=== PATIENT | male | born 1990 | race American Indian/Alaskan Native ===

== ENCOUNTER 2020-11-08 14:03 | Emergency (ER) | payer SELFPAY ==
--- NOTE | 2020-11-08 15:55 | Emergency Department Report ---
ED Male HPI - General Chief complaint: Urogenital-Male Stated complaint: PROBLEMS URINATING Time Seen by Provider: 11/08/20 15:13 Source: patient Mode of arrival: Ambulatory Limitations: No Limitations - History of Present Illness Initial comments: This is a 30-year-old male complaining of painful urination and clear penile discharge x2 days. He was seen at a clinic yesterday and started on doxycycline the patient states that the symptoms have not improved and painful urination is getting worse. He admits to unprotected sex with one sexual partner states that she was treated a few weeks ago for an STD. Patient denies fever nausea vomiting he denies testicular pain or swelling no fever or chills -: days(s) (2) Radiation: none Severity: moderate Severity scale (0 -10): 10 Quality: burning Improves with: none Worsens with: urination discharge, dysuria. denies: swelling, mass, rash, urinary retention, fever, nausea/vomiting, incontinence - Related Data Sexually active: Yes Allergies Allergy/AdvReac Type Severity Reaction Status Date / Time No Known Allergies Allergy Unverified 11/08/20 14:31 ED Review of Systems ROS: Stated complaint: PROBLEMS URINATING Other details as noted in HPI Comment: All other systems reviewed and negative Constitutional: denies: chills, fever ENT: denies: ear pain, throat pain, dental pain, hearing loss, congestion Respiratory: denies: cough, shortness of breath, wheezing Cardiovascular: denies: as per HPI, chest pain, palpitations Endocrine: denies: excessive sweating, flushing, intolerance to cold Gastrointestinal: denies: abdominal pain, nausea, vomiting, constipation, hematemesis Genitourinary: dysuria, frequency, discharge. denies: testicular pain, testicular mass Skin: denies: as per HPI, rash Neurological: denies: headache, weakness, abnormal gait ED Past Medical Hx - Past Medical History Previous Medical History?: Yes Additional medical history: Right eye gland surgery - Surgical History Past Surgical History?: Yes Additional Surgical History: right eye - Social History Smoking Status: Current Every Day Smoker Substance Use Type: Alcohol, Marijuana ED Physical Exam - General Limitations: No Limitations General appearance: alert, in no apparent distress - Head Head exam: Present: atraumatic - Eye Eye exam: Present: normal appearance - ENT ENT exam: Present: normal exam - Neck Neck exam: Present: normal inspection - Respiratory Respiratory exam: Present: normal lung sounds bilaterally, respiratory distress - Cardiovascular Cardiovascular Exam: Present: regular rate, normal heart sounds - GI/Abdominal GI/Abdominal exam: Present: soft. Absent: distended, tenderness, guarding - exam: Present: normal inspection - Extremities Exam Extremities exam: Present: normal inspection - Back Exam Back exam: Present: normal inspection - Neurological Exam Neurological exam: Present: alert, oriented X3 - Skin Skin exam: Present: warm, dry, intact, normal color. Absent: rash ED Course Vital Signs 11/08/20 11/08/20 14:33 17:00 Temperature 98.2 F Pulse Rate 81 88 Respiratory 20 18 Rate Blood Pressure 125/77 Blood Pressure 134/68 [Left] O2 Sat by Pulse 99 100 Oximetry ED Medical Decision Making - Medical Decision Making 30-year-old male presents with complaint of dysuria and penile discharge states that he was seen by physician yesterday and prescribed doxycycline but he has had no improvement. Patient states that few weeks ago his girlfriend had a possible STD exposure. Urinalysis done no sign of infection Rocephin 500 mg and azithromycin given patient instructed to have complete STD screening at the local STD clinic - Differential Diagnosis Urethritis STD Critical Care Time: No Critical care attestation.: If time is entered above; I have spent that time in minutes in the direct care of this critically ill patient, excluding procedure time. ED Disposition Clinical Impression: Dysuria, Possible exposure to STD Disposition: DC-01 TO HOME OR SELFCARE Is pt being admited?: No Does the pt Need Aspirin: No Condition: Stable Instructions: Dysuria, Safe Sex Additional Instructions: Practice safe sex all the time every time. Wear condoms. Follow-up with your local STD clinic or your primary care doctor for STD testing which includes go norrhea chlamydia HIV genital warts syphilis trichomonas. Have all your sexual partners tested for STD. Today you were given Rocephin injection and a azithromycin. These 2 medication is the treatment for gonorrhea and chlamydia only Referrals: JOYCELYN RAMÍREZ MD [Primary Care Provider] - 3-5 Days Time of Disposition: 16:55
[2020-11-08 16:11] LABS: Bilirubin,Urine NEG (Negative); Blood,Urine NEG (Negative); Color,Urine Yellow (Yellow); Mucus,Urine 1+ /HPF; Protein,Urine <15 mg/dL mg/dL (Negative); Urobilinogen,Urine < 2.0 mg/dL (<2.0)
[2020-11-08] MEDS ORDERED: AZITHROMYCIN 1 GM ORAL PWDR PACKET PO ONE (16:23)
[2020-11-08] MEDS ORDERED: LIDOCAINE-MPF (1%) 10 MG/1 ML VIAL 5 ML INFILTRATI ONE (16:23)
[2020-11-08 17:15] VITALS: BP 134/68
== END 2020-11-08 17:15 | disposition home or self-care (01) ==
LOC: ED 14:03
DX: R30.0 Dysuria (principal); F17.200 Nicotine dependence, unspecified, uncomplicated; F12.90 Cannabis use, unspecified, uncomplicated; Z98.890 Other specified postprocedural states; Z20.2 Contact with and (suspected) exposure to infections with a predominantly sexual mode of transmission
CPT/HCPCS: 81001; 96372; 99283; J0696